=== PATIENT | female | born 2005 | race Two or more races ===

== ENCOUNTER 2024-07-11 16:01 | Emergency (ER) | payer OTHER ==
[~2024-07-11] VITALS: Ht 157.5 cm; Wt 81.6 kg
[2024-07-11] MEDS ORDERED: ACETAMINOPHEN 325 MG TABLET PO ONE (16:45)
[2024-07-11] MEDS ORDERED: ONDANSETRON HCL 2 MG/ML VIAL IV ONE (16:45)
[2024-07-11] MEDS ORDERED: FAMOtidine 10 MG/ML (4ML VIAL) IV PUSH ONE (16:45)
[2024-07-11 17:32] LABS: HEMATOCRIT 40.8 % (36.0-45.00); MEAN CELL VOLUME 85.8 fL (80.00-100.00); MEAN CORPUSCULAR HEMOGLOBIN 27.5 pg (27.00-32.0); PLATELET COUNT 186 K/uL (150-450); RED BLOOD COUNT 4.75 M/uL (4.00-6.00); RED CELL DISTRIBUTION WIDTH 15.5 % (11.5-14.5)
[2024-07-11] MEDS ORDERED: ZOFRAN8 MG PO (20:06)
[2024-07-11] MEDS ORDERED: PEPCID AC20 MG PO (20:06)
== END 2024-07-11 20:12 | disposition home or self-care (01) ==
LOC: ER 16:04
PROVIDERS: General Practice
DX: O26.891 Other specified pregnancy related conditions, first trimester (principal); R10.2 Pelvic and perineal pain; Z3A.01 Less than 8 weeks gestation of pregnancy